=== PATIENT | female | born 1985 | race Caucasian/White ===

== ENCOUNTER 2021-11-30 20:09 | Emergency (ER) | payer OTHER ==
[~2021-11-30] VITALS: Ht 154.9 cm; Wt 140.7 kg
[2021-11-30] MEDS ORDERED: BACTRIM DS TAB1 EACH PO (21:28)
[2021-11-30] MEDS ORDERED: HIBICLENS118 ML TOP (21:28)
== END 2021-11-30 21:43 | disposition home or self-care (01) ==
LOC: ED 20:09
DX: L03.114 Cellulitis of left upper limb (principal); J45.909 Unspecified asthma, uncomplicated; I10 Essential (primary) hypertension; Z88.0 Allergy status to penicillin; Z88.5 Allergy status to narcotic agent
CPT/HCPCS: 87070; 87075; 87205; 99283

== ENCOUNTER 2022-02-09 17:39 | Emergency (ER) | payer OTHER ==
[~2022-02-09] VITALS: Ht 154.9 cm; Wt 137.5 kg
[~2022-02-09 17:39] MED LIST: BACTRIM DS TAB1 EACH PO; HIBICLENS118 ML TOP
[2022-02-09] MEDS ORDERED: DOXYCYCLINE HY100 MG PO (21:28)
[2022-02-09] MEDS ORDERED: HYDROCODON-ACE1 EA10 PO (21:28)
== END 2022-02-09 21:52 | disposition home or self-care (01) ==
LOC: ED 17:39
DX: L02.416 Cutaneous abscess of left lower limb (principal); J45.909 Unspecified asthma, uncomplicated; I10 Essential (primary) hypertension; E78.5 Hyperlipidemia, unspecified; Z88.0 Allergy status to penicillin; Z88.5 Allergy status to narcotic agent
CPT/HCPCS: 10060; 99283-25; A9270

== ENCOUNTER 2023-04-02 19:03 | Emergency (ER) | payer OTHER ==
[~2023-04-02] VITALS: Ht 154.9 cm; Wt 100.0 kg
[~2023-04-02 19:03] MED LIST changes: +DOXYCYCLINE HY100 MG PO; +HYDROCODON-ACE1 EA10 PO
[2023-04-02] MEDS ORDERED: VENTOLIN HFA18 GM INH (19:17)
[2023-04-02 19:50] VITALS: BP 102/58
== END 2023-04-02 19:50 | disposition home or self-care (01) ==
LOC: ED 19:03
DX: R07.89 Other chest pain (principal); J45.909 Unspecified asthma, uncomplicated; I10 Essential (primary) hypertension; E78.5 Hyperlipidemia, unspecified; Z88.0 Allergy status to penicillin; Z88.5 Allergy status to narcotic agent
CPT/HCPCS: 71046; 99283-25

== ENCOUNTER 2023-11-22 17:12 | Emergency (ER) | payer BC, OTHER ==
[~2023-11-22] VITALS: Ht 154.9 cm; Wt 76.0 kg
[~2023-11-22 17:12] MED LIST changes: +VENTOLIN HFA18 GM INH
[2023-11-22 20:07] LABS: INFLUENZA B NAA NEGATIVE (NEGATIVE); RESPIRATORY SYNCYTIAL VIR NAA NEGATIVE (NEGATIVE)
[2023-11-22 21:01] VITALS: BP 110/85
== END 2023-11-22 21:00 | disposition home or self-care (01) ==
LOC: ED 17:12
PROVIDERS: Family Medicine
DX: J40 Bronchitis, not specified as acute or chronic (principal); I10 Essential (primary) hypertension; Z88.0 Allergy status to penicillin; Z88.5 Allergy status to narcotic agent; Z11.52 Encounter for screening for COVID-19
CPT/HCPCS: 71045; 87502; 94664; 99285-25; U0002

== ENCOUNTER 2024-07-26 16:25 | Emergency (ER) | payer BC, OTHER ==
[~2024-07-26] VITALS: Ht 154.9 cm; Wt 70.2 kg
[~2024-07-26 16:25] MED LIST changes: +CARAFATE1 GM PO; +CEPHALEXIN125 MG/5 M PO; +HYDROXYZINE HCL25 MG PO; +K-TAB ER20 MEQ PO; +MONTELUKAST SOD10 MG PO; +NICOTINE PATCH1 EACH TD; +ONDANSETRON ODT8 MG PO
[2024-07-26 18:31] LABS: BASOPHILS 0.4 % (0-2); EOSINOPHILS 0.9 % (0-6); HEMATOCRIT 38.9 % (35.0-50.0); HEMOGLOBIN 12.8 g/dL (12.0-18.0); LYMPHOCYTES 35.8 % (24-44); MCH 29.4 (27-36); MCHC 32.9 g/dl (30-36); MCV 89.4 fl (81-99); MONOCYTES 8.4 % (0-12); NEUTROPHILS 54.5 % (39-80); PLATELET COUNT 302 K/uL (140-440); RBC 4.35 M/ul (4.3-5.7); RDW 13.8 (10.5-15.0)
[2024-07-26 18:35] LABS: BILIRUBIN, URINE NEGATIVE (negative); BLOOD/HGB, URINE MODERATE (Negative); KETONE, URINE NEGATIVE (Negative); LEUK ESTERASE, URINE NEGATIVE (negative); NITRITE, URINE NEGATIVE (negative); PH, URINE 5.5 (5-7)
[2024-07-26 18:43] LABS: SMEAR REVIEW BLOOD SEE COMMENTS
[2024-07-26 18:45] LABS: RED BLOOD CELLS, URINE 0-1 /hpf (0-5)
[2024-07-26 18:46] LABS: BACTERIA, URINE RARE /hpf (negative); CASTS, URINE NONE SEEN \\lpf; COLLECTION TYPE, URINE CLEAN CATCH; CRYSTALS, URINE NONE SEEN (0-1+); EPITHELIAL CELLS, URINE SQUAMOUS 2+ /lpf (0-1+); REFLEX CULTURE, URINE No (No); WHITE BLOOD CELLS, URINE 0-1 /HPF (0-5)
[2024-07-26 18:48] LABS: ALBUMIN 3.7 g/dL (3.4-5.0); ALBUMIN/GLOBULIN RATIO 1.09 (1.1-2.4); ANION GAP 10.8 (7-21); BILIRUBIN, TOTAL 0.2 ng/dL (0.2-1.0); BUN/CREATININE RATIO 16.17 (6.0-28.6); CALCIUM 9.1 mg/dL (8.5-10.1); CREATININE, SERUM 0.68 mg/dL (0.55-1.02); POTASSIUM 3.8 mmol/L (3.5-5.1); PROTEIN, TOTAL 7.1 g/dL (6.4-8.2)
[2024-07-26] MEDS ORDERED: SODIUM CHLORIDE 0.9% 1,000 ML IV PRN (19:30)
[2024-07-26] MEDS ORDERED: KETOROLAC TROMETHAMINE 30 MG/ML VIAL IV ONE (19:30)
[2024-07-26] MEDS ORDERED: ondansetron HCL 4 MG/2 ML VIAL IV ONE (19:30)
[2024-07-26] MEDS ORDERED: HYDROCODON-ACE1 EA10 PO (20:34)
[2024-07-26] MEDS ORDERED: HYDROCODONE BIT/ACETAMINOPHEN 5/325 MG 1 TAB HOME.PACK PO ONE (20:45)
[2024-07-26 20:48] VITALS: BP 107/66
== END 2024-07-26 20:48 | disposition home or self-care (01) ==
LOC: ED 16:25
PROVIDERS: Emergency Medicine
DX: N28.1 Cyst of kidney, acquired (principal); S37.011A Minor contusion of right kidney, initial encounter; X58.XXXA Exposure to other specified factors, initial encounter; J45.909 Unspecified asthma, uncomplicated; I10 Essential (primary) hypertension; Z98.890 Other specified postprocedural states; Z88.0 Allergy status to penicillin; Z88.5 Allergy status to narcotic agent; Z79.899 Other long term (current) drug therapy
CPT/HCPCS: 36415; 74177; 80053; 81001; 83690; 84703; 85025; 85060; 96375; 99284-25; A9270; J1885; J2405; J7030; Q9967

== ENCOUNTER 2024-11-16 21:27 | Emergency (ER) | payer BC, OTHER ==
[~2024-11-16] VITALS: Ht 154.9 cm; Wt 72.6 kg
[2024-11-16 21:40] LABS: BASOPHILS 0.3 % (0-2); EOSINOPHILS 0.4 % (0-6); HEMATOCRIT 38.9 % (35.0-50.0); HEMOGLOBIN 13.4 g/dL (12.0-18.0); LYMPHOCYTES 14.7 % (24-44); MCH 30.7 (27-36); MCHC 34.4 g/dl (30-36); MCV 89.2 fl (81-99); MONOCYTES 9.5 % (0-12); NEUTROPHILS 75.1 % (39-80); PLATELET COUNT 268 K/uL (140-440); RBC 4.36 M/ul (4.3-5.7); RDW 14.2 (10.5-15.0)
[2024-11-16] MEDS ORDERED: ondansetron HCL 4 MG/2 ML VIAL IV ONE (21:45)
[2024-11-16] MEDS ORDERED: LACTATED RINGER'S 1,000 ML IV ONE ×2 (21:45→23:00)
[2024-11-16 21:56] LABS: ALBUMIN 3.5 g/dL (3.4-5.0); ALBUMIN/GLOBULIN RATIO 0.9 (1.1-2.4); ANION GAP 10.8 (7-21); BILIRUBIN, TOTAL 0.1 ng/dL (0.2-1.0); BUN/CREATININE RATIO 16.86 (6.0-28.6); CALCIUM 9.2 mg/dL (8.5-10.1); CREATININE, SERUM 0.83 mg/dL (0.55-1.02); POTASSIUM 3.8 mmol/L (3.5-5.1); PROTEIN, TOTAL 7.4 g/dL (6.4-8.2)
[2024-11-16] MEDS ORDERED: FAMOTIDINE 20 MG/ 2 ML VIAL IV ONE (22:00)
[2024-11-16] MEDS ORDERED: KETOROLAC TROMETHAMINE 30 MG/ML VIAL IV ONE (22:00)
[2024-11-16 23:49] LABS: BILIRUBIN, URINE NEGATIVE (negative); BLOOD/HGB, URINE NEGATIVE (Negative); KETONE, URINE SMALL (Negative); LEUK ESTERASE, URINE NEGATIVE (negative); NITRITE, URINE NEGATIVE (negative); PH, URINE 7.5 (5-7)
[2024-11-17 00:02] LABS: AMPHETAMINES, URINE NEGATIVE (NEGATIVE); BARBITURATES, URINE NEGATIVE (NEGATIVE); BENZODIAZEPINE, URINE NEGATIVE (NEGATIVE); BUPRENORPHINE, URINE NEGATIVE (NEGATIVE); CANNABINOID, URINE POSITIVE (NEGATIVE); COCAINE, URINE NEGATIVE (NEGATIVE); ECSTASY, URINE NEGATIVE (NEGATIVE); FENTANYL, URINE NEGATIVE (NEGATIVE); METHADONE, URINE NEGATIVE (NEGATIVE); OPIATES, URINE NEGATIVE (NEGATIVE); OXYCODONE, URINE NEGATIVE (NEGATIVE); PHENCYCLIDINE, URINE NEGATIVE (NEGATIVE)
[2024-11-17] MEDS ORDERED: ONDANSETRON 4 MG HOME.PACK SL ONE (01:30)
[2024-11-17 01:31] VITALS: BP 144/58
--- NOTE | 2024-11-18 10:17 | EKG ---
[facility] [address] [place], [place] [address] Signed Junctional rhythm Abnormal ECG Confirmed by Monty Mcgraw DO ([id number]) on 11/18/2024 10:17:10 AM Electronically Signed By: MONTY MCGRAW DO 11/18/24 1017 PATIENT NAME: AICHA JALLOH Electrocardiogram DATE OF : 85 PHYSICIAN: MONTY MCGRAW DO REPORT #: [id number] REPORT IS CONFIDENTIAL AND NOT TO BE RELEASED WITHOUT AUTHORIZATION
== END 2024-11-17 01:31 | disposition home or self-care (01) ==
LOC: ED 21:27
PROVIDERS: Internal Medicine
DX: A05.9 Bacterial foodborne intoxication, unspecified (principal); J45.909 Unspecified asthma, uncomplicated; I10 Essential (primary) hypertension; E78.5 Hyperlipidemia, unspecified; Z88.0 Allergy status to penicillin; Z88.5 Allergy status to narcotic agent
CPT/HCPCS: 36415; 80053; 80307; 81003; 83690; 83735; 84484; 84703; 85025; 93005; 93010; 96361; 96374; 96375; 99284-25; A9270; J1885; J2405; J7121

== ENCOUNTER 2025-02-25 21:56 | Emergency (ER) | payer BC, OTHER ==
[~2025-02-25] VITALS: Ht 154.9 cm; Wt 71.4 kg
[2025-02-25 22:39] LABS: BASOPHILS 0.5 % (0-2); EOSINOPHILS 0.7 % (0-6); HEMATOCRIT 36.1 % (35.0-50.0); HEMOGLOBIN 12.6 g/dL (12.0-18.0); LYMPHOCYTES 39.7 % (24-44); MCH 29.7 (27-36); MCHC 34.8 g/dl (30-36); MCV 85.4 fl (81-99); MONOCYTES 8.4 % (0-12); NEUTROPHILS 50.7 % (39-80); PLATELET COUNT 287 K/uL (140-440); RBC 4.23 M/ul (4.3-5.7); RDW 13.5 (10.5-15.0)
[2025-02-25 22:47] LABS: BILIRUBIN, URINE NEGATIVE (negative); BLOOD/HGB, URINE SMALL (Negative); KETONE, URINE TRACE (Negative); LEUK ESTERASE, URINE NEGATIVE (negative); NITRITE, URINE NEGATIVE (negative)
[2025-02-25 22:54] LABS: ALBUMIN 3.1 g/dL (3.4-5.0); ALBUMIN/GLOBULIN RATIO 0.86 (1.1-2.4); ANION GAP 11.6 (7-21); BILIRUBIN, TOTAL 0.2 mg/dL (0.2-1.0); BUN/CREATININE RATIO 18.84 (6.0-28.6); CALCIUM 8.5 mg/dL (8.5-10.1); CREATININE, SERUM 0.69 mg/dL (0.55-1.02); POTASSIUM 3.6 mmol/L (3.5-5.1); PROTEIN, TOTAL 6.7 g/dL (6.4-8.2)
[2025-02-25 22:57] LABS: BACTERIA, URINE RARE /hpf (negative); CASTS, URINE NONE SEEN \\lpf; COLLECTION TYPE, URINE CLEAN CATCH; CRYSTALS, URINE NONE SEEN (0-1+); EPITHELIAL CELLS, URINE SQUAMOUS 1+ /lpf (0-1+); REFLEX CULTURE, URINE No (No)
[2025-02-26 00:15] LABS: N. GONORRRHOEAE BY PCR NOT DETECTED (NOT DETECT)
[2025-02-26] MEDS ORDERED: ACYCLOVIR400 MG PO (01:04)
[2025-02-26 01:15] VITALS: BP 109/63
[2025-02-26] MEDS ORDERED: LIDOCAINE HCL 4% 5 GM TUBE TOP ONE (01:30)
== END 2025-02-26 01:15 | disposition home or self-care (01) ==
LOC: ED 21:56
PROVIDERS: Family Medicine
DX: A60.00 Herpesviral infection of urogenital system, unspecified (principal); I10 Essential (primary) hypertension; J45.909 Unspecified asthma, uncomplicated; E78.5 Hyperlipidemia, unspecified; Z88.0 Allergy status to penicillin; Z88.9 Allergy status to unspecified drugs, medicaments and biological substances
CPT/HCPCS: 36415; 80053; 81001; 83690; 85025; 87529; 99283

== ENCOUNTER 2025-05-19 22:00 | Emergency (ER) | payer BC, OTHER ==
[~2025-05-19] VITALS: Ht 154.9 cm; Wt 70.7 kg
[~2025-05-19 22:00] MED LIST changes: +ACYCLOVIR400 MG PO; +VALACYCLOVIR500 MG PO
[2025-05-19 23:05] LABS: BASOPHILS 0.3 % (0.1-1.2); EOSINOPHILS 0.9 % (0.7-5.8); LYMPHOCYTES 32.6 % (19.3-51.7); MCH 30.1 PG (25.6-32.2); MCHC 33.8 g/dL (32.2-35.5); MCV 89.1 fL (79.4-94.8); MONOCYTES 8.5 % (4.7-12.5); NEUTROPHILS 57.4 % (34.0-71.1); RBC 4.22 M/uL (3.93-5.22)
[2025-05-19 23:21] LABS: ALT (SGPT) 17.0 U/L (14-59); AST (SGOT) 12.0 U/L (15-37); GLOMERULAR FILTRATION RATE,EST 115.0 mL/min (>60); PROTEIN, TOTAL 6.8 g/dL (6.4-8.2); UREA NITROGEN 9.0 mg/dL (7-18)
[2025-05-19] MEDS ORDERED: HYDROCODONE BIT/ACETAMINOPHEN 5/325 MG 1 TAB HOME.PACK PO ONE (23:45)
[2025-05-19] MEDS ORDERED: DAPTOmycin 500 MG/10 ML VIAL IV ONE (23:45)
[2025-05-19] MEDS ORDERED: CIPRO500 MG PO (23:45)
[2025-05-20] MEDS ORDERED: DOXYCYCLINE MO100 MG PO (00:06)
[2025-05-20 01:33] VITALS: BP 109/53
== END 2025-05-20 01:32 | disposition home or self-care (01) ==
LOC: ED 22:00
PROVIDERS: Family Medicine
DX: L03.012 Cellulitis of left finger (principal); I10 Essential (primary) hypertension; E78.5 Hyperlipidemia, unspecified; J45.909 Unspecified asthma, uncomplicated; Z79.899 Other long term (current) drug therapy; Z88.0 Allergy status to penicillin; Z88.5 Allergy status to narcotic agent
CPT/HCPCS: 36415; 73201; 80053; 84703; 85025; 99284-25; A9270; J0713; J0878; Q9967